=== PATIENT | female | born 1985 | race Caucasian/White ===

== ENCOUNTER 2017-12-18 23:38 | Emergency (ER) | payer MEDICAID ==
[~2017-12-18] VITALS: Ht 165.1 cm; Wt 69.4 kg
[~2017-12-18 23:38] MED LIST: ACET10EL PO; ALBU8.5H8 IH; AZIT250T PO; CYCL-1 PO; IBUP-1985 PO; METH4TAB81 PO; NORE1TAB39 PO
[2017-12-19] MEDS ORDERED: naproxen 500mg tablet PO ONE (00:20)
[2017-12-19] MEDS ORDERED: PENI500T2 PO (00:22)
[2017-12-19] MEDS ORDERED: NAPR-56 PO (00:22)
[2017-12-19 01:06] VITALS: BP 113/81
== END 2017-12-19 01:07 | disposition home or self-care (01) ==
LOC: ER 23:39
DX: K02.9 Dental caries, unspecified (principal); G89.29 Other chronic pain; F17.200 Nicotine dependence, unspecified, uncomplicated; H92.09 Otalgia, unspecified ear; Z56.0 Unemployment, unspecified; Z79.899 Other long term (current) drug therapy
CPT/HCPCS: 99283

== ENCOUNTER 2019-02-03 15:53 | Emergency (ER) | payer MEDICAID ==
[~2019-02-03] VITALS: Ht 162.6 cm; Wt 70.0 kg
[2019-02-03 16:47] LABS: CLARITY,URINE CLEAR (Clear); COLOR,URINE YELLOW (Yellow); GLUCOSE, URINE NEGATIVE (Neg); KETONES,URINE TRACE mg/dl (Neg); LEUKOCYTE ESTERASE ,URINE NEGATIVE (Neg); NITRITES, URINE NEGATIVE (Neg); OCCULT BLOOD,URINE NEGATIVE (Neg); PH,URINE 6.5 (4.8-8.0); PROTEIN,URINE NEGATIVE (Neg); UROBILINOGEN,URINE 0.2 E.U/dL (0.2-1.0)
[2019-02-03 16:58] LABS: BASOPHILS # (AUTO) 0.1 X10'3 (0-0.2); BASOPHILS % (AUTO) 0.6 % (0-1); EOSINOPHILS # (AUTO) 0.3 X10'3 (0-0.9); EOSINOPHILS % (AUTO) 3.3 % (0-6); HEMATOCRIT 39.5 % (35.0-45.0); HEMOGLOBIN 13.2 g/dl (12.0-16.0); LYMPHOCYTES # (AUTO) 3.2 X10'3 (1.1-4.8); LYMPHOCYTES % (AUTO) 33.9 % (21-51); MEAN CORPUSCULAR HEMOGLOBIN 31.2 PG (27.0-31.0); MEAN CORPUSCULAR HGB CONC 33.4 g/dL (33.0-36.5); MEAN CORPUSCULAR VOLUME 93.4 FL (78-98); MEAN PLATELET VOLUME 6.9 FL (7.4-10.4); MONOCYTES # (AUTO) 0.5 X10'3 (0-0.9); MONOCYTES % (AUTO) 5.7 % (2-12); NEUTROPHILS # (AUTO) 5.3 X10'3 (1.8-7.7); NEUTROPHILS % (AUTO) 56.5 % (42-75); PLATELET COUNT 267 X10'3 (140-440); RED BLOOD COUNT 4.23 X10'6 (4.20-5.60); RED CELL DISTRIBUTION WIDTH 13.8 % (11.5-14.5); WHITE BLOOD COUNT 9.3 X10'3 (4.5-11.0)
[2019-02-03 17:01] LABS: UA COLLECTION TYPE CLN CATCH MIDSTREAM; URINE HCG NEGATIVE (NEG)
[2019-02-03 17:11] LABS: ALANINE AMINOTRANSFERASE 24 U/L (12-78); ALBUMIN 3.5 G/DL (3.4-5.0); ALBUMIN/GLOBULIN RATIO 1.2 (1.1-1.5); ALKALINE PHOSPHATASE 45 IU/L (46-116); ANION GAP 5 (8-16); ASPARTATE AMINO TRANSFERASE 12 U/L (10-37); BILIRUBIN,TOTAL 0.1 MG/DL (0.1-1.0); BLOOD UREA NITROGEN 14 MG/DL (7-18); BUN/CREATININE RATIO 16.3 (6.6-38.0); CALCIUM 9.2 MG/DL (8.5-10.1); CHLORIDE 104 MMOL/L (99-107); CREATININE 0.86 MG/DL (0.40-0.90); GLUCOSE 134 MG/DL (70-104); LIPASE 128 U/L (73-393); POTASSIUM 3.6 MMOL/L (3.5-5.1); SODIUM 141 MMOL/L (135-145); TOTAL CARBON DIOXIDE 31.7 MMOL/L (24-32); TOTAL PROTEIN 6.4 G/DL (6.4-8.2); eGFR 76 ML/MIN
[2019-02-03] MEDS ORDERED: KETO10TA2 PO (18:06)
[2019-02-03] MEDS ORDERED: ketorolac trometh inj. 60 MG/2 ML VIAL IM ONE (18:10)
[2019-02-03 18:29] VITALS: BP 114/74
== END 2019-02-03 18:31 | disposition home or self-care (01) ==
LOC: ER 15:54
DX: R10.30 Lower abdominal pain, unspecified (principal); R30.0 Dysuria; G89.29 Other chronic pain; Z79.899 Other long term (current) drug therapy; Z56.0 Unemployment, unspecified
CPT/HCPCS: 36415; 80053; 81003; 81025; 83690; 85025; 96372; 99283; J1885

== ENCOUNTER 2021-02-19 01:49 | Emergency (ER) | payer MEDICAID ==
[~2021-02-19] VITALS: Ht 162.6 cm; Wt 70.0 kg
[~2021-02-19 01:49] MED LIST changes: +KETO10TA2 PO
[2021-02-19] MEDS ORDERED: iohexol 300mg/ml 100ml inj. ONE (02:40)
[2021-02-19 03:04] LABS: BASOPHILS % (AUTO) 0.3 % (0-1); EOSINOPHILS # (AUTO) 0.3 X10'3 (0-0.9); EOSINOPHILS % (AUTO) 1.8 % (0-6); HEMATOCRIT 39.9 % (35.0-45.0); HEMOGLOBIN 13.1 g/dl (12.0-16.0); LYMPHOCYTES # (AUTO) 3.1 X10'3 (1.1-4.8); LYMPHOCYTES % (AUTO) 18.8 % (21-51); MEAN CORPUSCULAR HGB CONC 32.9 g/dL (33.0-36.5); MEAN CORPUSCULAR VOLUME 94.2 FL (78-98); MEAN PLATELET VOLUME 7.3 FL (7.4-10.4); MONOCYTES # (AUTO) 1.2 X10'3 (0-0.9); MONOCYTES % (AUTO) 7.5 % (2-12); NEUTROPHILS # (AUTO) 11.7 X10'3 (1.8-7.7); NEUTROPHILS % (AUTO) 71.6 % (42-75); PLATELET COUNT 266 X10'3 (140-440); RED BLOOD COUNT 4.23 X10'6 (4.20-5.60); RED CELL DISTRIBUTION WIDTH 13.6 % (11.5-14.5); WHITE BLOOD COUNT 16.3 X10'3 (4.5-11.0)
[2021-02-19 03:07] LABS: ALBUMIN 3.4 G/DL (3.4-5.0); ANION GAP 10 (8-16); BLOOD UREA NITROGEN 13 MG/DL (7-18); BUN/CREATININE RATIO 17.6 (6.6-38.0); CALCIUM 8.3 MG/DL (8.5-10.1); CHLORIDE 107 MMOL/L (99-107); CREATININE 0.74 MG/DL (0.40-0.90); GLUCOSE 99 MG/DL (70-104); POTASSIUM 3.5 MMOL/L (3.5-5.1); SODIUM 142 MMOL/L (135-145); TOTAL CARBON DIOXIDE 25.1 MMOL/L (24-32); eGFR 90 ML/MIN
[2021-02-19] MEDS ORDERED: LIDOcaine 1% W/epiNEPHrine 1:200,000 10ml vial IJ ONE (04:00)
[2021-02-19] MEDS ORDERED: LIDOcaine 40mg/ml topical solution IH ONE (04:00)
[2021-02-19] MEDS ORDERED: LIDOcaine 4% (40 mg/ml) topical solution 50ml MM ONE (04:10)
[2021-02-19] MEDS ORDERED: CLIN300C17 PO ×2 (04:24→05:33)
[2021-02-19] MEDS ORDERED: ondansetron/PF 4mg/2ml inj IV ONE (04:45)
[2021-02-19] MEDS ORDERED: dexamethasone sod phosphate 10mg/ml inj IV STA (05:10)
[2021-02-19] MEDS ORDERED: clindamycin 300mg/D5W 50mL 50 ML IV STA (05:10)
[2021-02-19] MEDS ORDERED: ketorolac tromethamine 15mg/ml inj. IV ONE (05:20)
[2021-02-19 05:59] VITALS: BP 106/63
== END 2021-02-19 06:16 | disposition home or self-care (01) ==
LOC: ER 01:50
DX: J36 Peritonsillar abscess (principal); G89.29 Other chronic pain; Z87.440 Personal history of urinary (tract) infections; Z56.0 Unemployment, unspecified; Z79.2 Long term (current) use of antibiotics; Z79.899 Other long term (current) drug therapy
CPT/HCPCS: 36415; 70491; 80048; 85025; 96365; 96375; 99285; J1100; J1885; J2405; Q9967; J3490

== ENCOUNTER 2021-06-20 16:28 | Emergency (ER) | payer MEDICAID ==
[~2021-06-20] VITALS: Ht 162.6 cm; Wt 71.7 kg
[~2021-06-20 16:28] MED LIST changes: +ALBU8.5H17 IH; -ALBU8.5H8 IH; +CLIN300C17 PO
[2021-06-20 16:42] VITALS: BP 133/75
== END 2021-06-20 19:39 | disposition left against medical advice (07) ==
LOC: ER 16:29
DX: J39.1 Other abscess of pharynx (principal); Z53.21 Procedure and treatment not carried out due to patient leaving prior to being seen by health care provider

== ENCOUNTER 2021-10-05 12:42 | Emergency (ER) | payer MEDICAID ==
[~2021-10-05] VITALS: Ht 165.1 cm; Wt 152.0 kg
[2021-10-05 12:51] VITALS: BP 115/74
[2021-10-05 13:30] LABS: BASOPHILS % (AUTO) 0.4 % (0-1); EOSINOPHILS # (AUTO) 0.2 X10'3 (0-0.9); EOSINOPHILS % (AUTO) 2.6 % (0-6); HEMOGLOBIN 13.6 g/dl (12.0-16.0); MEAN CORPUSCULAR HEMOGLOBIN 31.7 PG (27.0-31.0); MEAN CORPUSCULAR HGB CONC 33.9 g/dL (33.0-36.5); MEAN CORPUSCULAR VOLUME 93.7 FL (78-98); MEAN PLATELET VOLUME 7.1 FL (7.4-10.4); MONOCYTES # (AUTO) 0.5 X10'3 (0-0.9); MONOCYTES % (AUTO) 5.5 % (2-12); NEUTROPHILS # (AUTO) 4.5 X10'3 (1.8-7.7); NEUTROPHILS % (AUTO) 54.5 % (42-75); PLATELET COUNT 322 X10'3 (140-440); RED BLOOD COUNT 4.27 X10'6 (4.20-5.60); RED CELL DISTRIBUTION WIDTH 13.7 % (11.5-14.5); WHITE BLOOD COUNT 8.2 X10'3 (4.5-11.0)
[2021-10-05 13:38] LABS: URINE HCG NEGATIVE (NEG)
[2021-10-05 13:42] LABS: CLARITY,URINE SLIGHTLY CLOUDY (Clear); COLOR,URINE YELLOW (Yellow); UA COLLECTION TYPE CLN CATCH MIDSTREAM
[2021-10-05 13:43] LABS: GLUCOSE, URINE NEGATIVE (Neg); KETONES,URINE NEGATIVE (Neg); LEUKOCYTE ESTERASE ,URINE NEGATIVE (Neg); NITRITES, URINE NEGATIVE (Neg); OCCULT BLOOD,URINE TRACE-LYSED (Neg); PROTEIN,URINE NEGATIVE (Neg); UROBILINOGEN,URINE 0.2 E.U/dL (0.2-1.0)
[2021-10-05 13:45] LABS: ALANINE AMINOTRANSFERASE 24 U/L (12-78); ALBUMIN 3.6 G/DL (3.4-5.0); ALKALINE PHOSPHATASE 54 IU/L (46-116); ANION GAP 10 (8-16); ASPARTATE AMINO TRANSFERASE 11 U/L (10-37); BILIRUBIN,TOTAL 0.3 MG/DL (0.1-1.0); BLOOD UREA NITROGEN 6 MG/DL (7-18); BUN/CREATININE RATIO 7.9 (6.6-38.0); CALCIUM 8.7 MG/DL (8.5-10.1); CHLORIDE 105 MMOL/L (99-107); CREATININE 0.76 MG/DL (0.40-0.90); GLUCOSE 110 MG/DL (70-104); LIPASE 69 U/L (73-393); POTASSIUM 3.8 MMOL/L (3.5-5.1); SODIUM 143 MMOL/L (135-145); TOTAL CARBON DIOXIDE 28.1 MMOL/L (24-32); TOTAL PROTEIN 7.1 G/DL (6.4-8.2); eGFR 87 ML/MIN
[2021-10-05 13:48] LABS: BACTERIA,URINE 1+ /HPF (Neg); MUCUS STRANDS NONE SEEN /LPF (Neg); RBC,URINE 0-2 /HPF (0-2); SQUAMOUS EPITHELIAL CELL,UR MANY /LPF (FEW); WBC,URINE 0-4 /HPF (0-4)
[2021-10-05] MEDS ORDERED: PANT20TA18 PO (16:25)
[2021-10-05] MEDS ORDERED: ONDA4TAB6 PO (16:25)
[2021-10-05] MEDS ORDERED: pantoprazole 40mg Tablet.DR PO ONE (17:04)
[2021-10-05] MEDS ORDERED: POLY17PO10 PO (17:06)
[2021-10-06] MEDS ORDERED: pantoprazole 40mg Tablet.DR PO SCH (07:30)
== END 2021-10-05 17:11 | disposition home or self-care (01) ==
LOC: ER 12:42
DX: R10.32 Left lower quadrant pain (principal); R19.7 Diarrhea, unspecified; R11.2 Nausea with vomiting, unspecified; K59.00 Constipation, unspecified; G89.29 Other chronic pain; Z87.440 Personal history of urinary (tract) infections; Z56.0 Unemployment, unspecified; Z79.2 Long term (current) use of antibiotics; Z79.899 Other long term (current) drug therapy
CPT/HCPCS: 36415; 74176; 80053; 81001; 81025; 83690; 85025; 99284

== ENCOUNTER → 2025-04-24 | Emergency (ER) | payer MEDICAID ==
[~2025-04-24] VITALS: Ht 162.6 cm; Wt 68.2 kg
[~2025-04-24] MED LIST changes: +ONDA4TAB6 PO; +PANT20TA18 PO
[2025-04-24 16:06] VITALS: BP 140/70; PULSE 96; RESP 16; TEMP 98.5; O2SAT 99
--- NOTE | 2025-04-24 16:13 | Physician Documentation ---
History of Present Illness ~ Chief Complaint: Shoulder pain Stated Complaint: SHOULDER PAIN Time Seen by MD: 17:21 Primary Medical Doctor: CHERELLE Source: patient (FT1) HPI 31-year-old female presents with right shoulder pain and numbness and tingling down into her index finger and thumb only. She mentions that she has also been having some neck pain as well after she slept on it wrong. She states that she slept with her arm up and woke up in her arm was completely asleep and took a while for it to recover although this tingling sensation has not resolved. She reports that the shoulder pain and tingling feels better when her arm is elevated above her head. MD history: Patient reports that she has had symptoms for going on for about 3-1/2 weeks. She denies any trauma, overuse, or new activities. She does report that she has a new bed, but this was about six weeks before onset of symptoms. While she does reports some pain in the shoulder area and aching down into the humerus, her symptoms are more consistent with a tingling which is significant and goes from her shoulder all the way down to her hand. She has pain at the shoulder as well as the trapezius muscle and the lateral right neck, reports that the tingling is better when she elevates her arm. However, when she fell asleep with her arm above her head for about 20 minutes she woke up with complete pa ralysis and numbness of the hand and this was transient. There has been no change since onset of the symptoms almost a month ago. She denies any associated trauma. She has been taking ibuprofen with some relief. Patient does not have a PMD and has not followed up, except at [facility] this morning where they sent her here for further workup. Medication Reconciliation Allergies: Coded Allergies: No Known Allergies (Unverified , 04/24/25) Scheduled Azithromycin (Zithromax), 1 DOSPAK PO UD Clindamycin Hcl (Clindamycin Hcl), 1 TAB PO TID Ibuprofen (Ibuprofen), 1 TAB PO Q8H Ketorolac Tromethamine (Ketorolac Tromethamine), 1 TAB PO Q6H PRN Methylprednisolone (Medrol Dosepak), 4 MG PO DAILY Norethindrone A-E Estradiol* (Loestrin*), 1 EACH PO DAILY, (Reported) Ondansetron Hcl (Zofran), 1 TAB PO Q6H Pantoprazole Sodium (Protonix), 1 TAB PO DAILY Scheduled PRN Acetaminophen With Codeine (Acetaminophen-Codeine Elixir), 10 ML PO Q6H PRN for cough & congestion Albuterol Sulfate (Proair Hfa), 2 PUFFS IH Q6H PRN for SOB or wheezing Cyclobenzaprine* (Cyclobenzaprine*), 1 TABLET PO Q8H PRN for muscle spasms Past Medical History Past Medical History: No Pertinent History, UTI, Chronic Back Pain Past Surgical History: noncontributory Smoking Status: Never smoker Alcohol Use: None Drug Use: none Lives with: S/O Lives In: Home Occupation: unemployed Review of Systems All Other Systems at this time: Reviewed and Negative Physical Exam Vital Signs: RN Vital Signs have been reviewed: Yes, Temperature: 98.5, Source: Temporal, Heart Rate: 96, Respiratory Rate: 16, BP: 140/70, Pulse Oximetry: 99, Weight: 68.180 Oxygen Flow Rate: 0 Pulse Oximetry Reflects: adequate oxygenation Physical Exam General: Alert, mild distress. HEENT: No injection, moist mucous membranes. Neck: Full range of motion. Respiratory: No respiratory distress, equal chest rise and fall. Chest: No accessory muscle use. Cardiovascular: Regular rate and rhythm. Gastrointestinal: Nondistended. Extremities: Normal range of motion, no deformity. Neurologic: Oriented x4. Psychiatric: Normal mood and affect. Skin: Normal color, warm and dry. MD exam: General: Pt is awake, alert, oriented x4 in no acute distress and well appearing. Head: Normocephalic and atraumatic. Eyes: Conjunctiva normal. ENT: Mucous membranes moist. Neck: Supple. Chest: Clear to auscultation bilaterally, without rales, rhonchi, or wheezes. There is no accessory muscle use or retractions. Cardiac: Regular rate and rhythm without murmurs, gallops or rubs. Palpation of the chest wall is normal. Abd: Soft, nondistended, nontender, with normoactive bowel sounds. No guarding or rebound. Extremities: Normal 2+ radial pulse of the affected arm. Motor and sensation intact to the hand in the median/radial/ulnar nerve distribution. She has mild tenderness to palpation of all major muscle groups from the shoulder down to her wrist. She has relatively good range of motion without significant pain. Patient has tenderness over the trapezius muscle and in the right lateral neck, although not over the midline of the neck. Skin: Dows, warm and dry with no significant rash appreciated. Neuro: Cranial nerves II-XII grossly intact. The gait is normal. Progress Results/Orders Results/Orders Orders - ALVERTO HERNANDEZ MD [facility] (04/24/25 17:39) Vital Signs 04/24/25 16:06 Temp 98.5 Pulse 96 Resp 16 B/P (MAP) 140/70 Pulse Ox 99 O2 Flow Rate 0 Re-Evaluation Re-Evaluation : Re-Evaluation Time: 18:00 Progress Awaiting MRI. Case signed out to Dr. Coker for further evaluation and workup Departure Referrals: NO PRIMARY CARE PROVIDER (PCP) Additional Comment Medical Screen Exam This patient recieved a medical screening examination. After reviewing the individual's medical complaints with presenting symptoms and performing an appropriate physical examination, it was determined that no immediate life- threatening emergency medical condition is present. This individual is also not a women having contractions. DARSHAN RAZA MEDICAL DATA ENTRY CLERK Apr 24, 2025 16:13 ALVERTO HERNANDEZ MD Apr 24, 2025 17:53
== END | disposition left against medical advice (07) ==
LOC: ER 16:02
DX: M25.511 Pain in right shoulder (principal); Z79.899 Other long term (current) drug therapy; Z56.0 Unemployment, unspecified
CPT/HCPCS: 99281